=== PATIENT | female | born 1995 | race Caucasian/White ===

== ENCOUNTER 2024-08-31 20:53 | Inpatient (IN) | payer BC ==
[2024-08-31 21:40] LABS: Bilirubin Neg (Negative); Blood, Urine 250 (Negative); Glucose, Urine (Dipstick) Normal (Negative); Ketone, Urine Negative (Negative); Leukocyte 100 (Negative); Nitrite Negative (Negative); Protein, Urine (Dipstick) 30 mg/dl (Neg-Trace); Specific Gravity, Urine 1.015 (1.005-1.030); Urobilinogen Normal mg/dL (Less than 2)
[2024-08-31 21:40] LABS: #Basophils 0.04 10x3/uL (0.0-0.2); #Monocytes 0.88 10x3/uL (0.0-1.1); #Neutrophils 11.22 10x3/uL (1.5-8.4); %Basophils 0.3 % (0.0-2.0); %Eosinophils 1.4 % (0.0-6.0); %Lymphocytes 13.1 % (18.0-47.0); %Monocytes 6.1 % (0.0-10.0); %Neutrophils 77.7 % (40.0-75.0); Hematocrit 30.8 % (34.9-44.5); Hemoglobin 10.2 g/dL (12.0-15.5); Mean Corpuscular HGB CONC 33.1 g/dL (32.0-36.0); Mean Corpuscular Hemoglobin 27.8 pg (27.0-33.0); Mean Corpuscular Volume 83.9 fL (81.6-98.3); Mean Platelet Volume 10.2 fL (7.4-10.4); Platelet Count 198 10x3/uL (150-450); RBC Distribution Width 12.9 % (11.5-14.5); Red Blood Cell (RBC) Count 3.67 10x6/uL (3.90-5.03); White Blood Cell (WBC) Count 14.43 10x3/uL (3.5-10.5)
[2024-08-31 21:43] LABS: Clarity Hazy (Clear)
[2024-08-31] MEDS ORDERED: hydrALAZINE 20 MG/ML VIAL ONE (21:47)
[2024-08-31 21:55] LABS: Anion Gap 15 mmol/L (10-20); BUN (Urea Nitrogen) 8 mg/dL (7.0-18.7); Calc. Creatinine Clearance 0 mL/min (70-130); Calcium 9.8 mg/dL (7.8-10.44); Carbon Dioxide 22 mmol/L (22-29); Chloride 108 mmol/L (98-107); Estimated GFR 122; Glucose 74 mg/dL (70-105); Potassium 3.7 mmol/L (3.5-5.1); Sodium 141 mmol/L (136-145)
[2024-08-31 21:56] LABS: Bacteria/HPF 1+ HPF (None Seen); CAUTI Indications for Culture Dysuria,urgency,freq; RBC/HPF Greater than 50 HPF (0-3)
[2024-08-31 21:57] LABS: Transitional Epithelial 0-3 HPF (None Seen)
[2024-08-31 21:59] LABS: Urine Culture Reflex Yes Yes
[2024-08-31] MEDS ORDERED: Magnesium 2 GM/50 ML BAG (IN WATER) ONE (22:45)
[2024-08-31] MEDS ORDERED: Lorazepam 2 MG/ML VIAL ONE (23:42)
[2024-09-01] MEDS ORDERED: hydrALAZINE 20 MG/ML VIAL SLOW IVP PRN ×2 (00:31)
[2024-09-01] MEDS ORDERED: Lanolin Ointment 7 GM TUBE TOP PRN (00:31)
[2024-09-01] MEDS ORDERED: Promethazine HCl 25 MG/ML VIAL IM PRN (00:31)
[2024-09-01] MEDS ORDERED: Ondansetron PF 4 MG/2 ML Vial IVP PRN (00:31)
[2024-09-01] MEDS ORDERED: Milk Of Magnesia 30 ML UDCUP PO PRN (00:31)
[2024-09-01] MEDS ORDERED: Calcium Gluc 4.6 MEQ/10 ML (100 MG/ML) SLOW IVP PRN ×2 (00:31→01:21)
[2024-09-01] MEDS ORDERED: Methylergonovine 0.2 MG/ML VIAL IM PRN (00:31)
[2024-09-01] MEDS ORDERED: Bisacodyl 10 MG SUPP PR PRN (00:31)
[2024-09-01] MEDS ORDERED: Preparation H Ointment 28 GM TUBE PR PRN (00:31)
[2024-09-01] MEDS ORDERED: Misoprostol 200 MCG TAB VAG PRN (00:31)
[2024-09-01] MEDS ORDERED: Benzocaine-Menthol 82.5 ML CAN TOP PRN (00:31)
[2024-09-01] MEDS ORDERED: Labetalol HCl 100 MG/20 ML VIAL SLOW IVP PRN (00:31)
[2024-09-01] MEDS ORDERED: Lorazepam 2 MG/ML VIAL SLOW IVP PRN ×2 (00:31→01:21)
[2024-09-01] MEDS ORDERED: Oxytocin 30 units/NS 500 ML 500 ML IV SCH (00:45)
[2024-09-01] MEDS: Lactated Ringer's 1,000 ML IV SCH (01:20)
[2024-09-01] MEDS: Magnesium Sulfate 20 gm/500 ml 20 GM/500 ML BAG IVPB SCH ×2 (01:25→10:58)
[2024-09-01] MEDS: Labetalol HCl 100 MG TAB PO SCH ×2 (01:57→09:14)
[2024-09-01] MEDS: Magnesium Sulfate 20 gm/500 ml 20 GM/500 ML BAG ONE (01:59)
[2024-09-01] MEDS: Ibuprofen 800 MG TAB PO SCH ×2 (02:25→11:05)
[2024-09-01 02:27] VITALS: BMI 30.2
[2024-09-01 02:33] LABS: Creatinine, Urine 49.71 mg/dL (16.00-327.00)
[2024-09-01 03:15] LABS: ALT (SGPT) 13 U/L (Less than 34); AST (SGOT) 21 U/L (11-34); Alkaline Phosphatase 134 U/L (40-110); Bilirubin, Direct 0.1 mg/dL (0.1-0.3); Bilirubin, Total 0.3 mg/dL (0.3-1.2); Protein, Total 6.6 g/dL (6.0-8.3)
[2024-09-01] MEDS: Ferrous Sulfate 325 MG TAB PO SCH (09:15)
[2024-09-01] MEDS: Docusate 100 MG CAP PO SCH (09:15)
[2024-09-02] MEDS: Sertraline 100 MG TAB PO SCH (06:02)
[2024-09-02] MEDS: Prenatal Vitamin 1 TAB PO SCH (07:24)
[2024-09-02] MEDS: busPIRone HCl 5 MG TAB PO PRN (21:26)
[2024-09-02] MEDS: hydrALAZINE 20 MG/ML VIAL SLOW IVP PRN (21:27)
[2024-09-02] MEDS: Labetalol HCl 100 MG TAB PO SCH (22:12)
[2024-09-03] MEDS: Ibuprofen 800 MG TAB PO SCH (06:31)
[2024-09-03] MEDS: Labetalol HCl 100 MG TAB PO SCH (08:01)
[2024-09-04] MEDS: Labetalol HCl 100 MG/20 ML VIAL SLOW IVP PRN (08:09)
[2024-09-04] MEDS: Labetalol HCl 200 MG TAB PO SCH (09:10)
[2024-09-04] MEDS ORDERED: Labetalol HCl 100 MG/20 ML VIAL SLOW IVP PRN ×2 (16:24)
[2024-09-04] MEDS ORDERED: hydrALAZINE 20 MG/ML VIAL SLOW IVP PRN (16:24)
[2024-09-04] MEDS: Furosemide 20 MG (2 mL) VIAL SLOW IVP SCH (16:42)
[2024-09-04] MEDS: NIFEdipine XL 30 MG ER.TAB PO SCH (16:43)
[2024-09-04] MEDS: hydrALAZINE 20 MG/ML VIAL SLOW IVP PRN (16:43)
[2024-09-04 16:56] LABS: #Basophils 0.04 10x3/uL (0.0-0.2); #Eosinophils 0.25 10x3/uL (0.0-0.5); #Monocytes 0.95 10x3/uL (0.0-1.1); #Neutrophils 10.71 10x3/uL (1.5-8.4); %Basophils 0.3 % (0.0-2.0); %Eosinophils 1.8 % (0.0-6.0); %Lymphocytes 11.8 % (18.0-47.0); %Monocytes 6.8 % (0.0-10.0); %Neutrophils 77.1 % (40.0-75.0); Hematocrit 33.5 % (34.9-44.5); Hemoglobin 10.9 g/dL (12.0-15.5); Mean Corpuscular HGB CONC 32.5 g/dL (32.0-36.0); Mean Corpuscular Hemoglobin 27.8 pg (27.0-33.0); Mean Corpuscular Volume 85.5 fL (81.6-98.3); Mean Platelet Volume 9.9 fL (7.4-10.4); Platelet Count 255 10x3/uL (150-450); RBC Distribution Width 12.7 % (11.5-14.5); Red Blood Cell (RBC) Count 3.92 10x6/uL (3.90-5.03)
[2024-09-04 17:18] LABS: ALT (SGPT) 18 U/L (Less than 34); AST (SGOT) 23 U/L (11-34); Albumin 3.4 g/dL (3.1-4.5); Alkaline Phosphatase 137 U/L (40-110); Anion Gap 16 mmol/L (10-20); BUN (Urea Nitrogen) 10 mg/dL (7.0-18.7); Bilirubin, Total 0.4 mg/dL (0.3-1.2); Calc. Creatinine Clearance 148 mL/min (70-130); Calcium 9.5 mg/dL (7.8-10.44); Carbon Dioxide 19 mmol/L (22-29); Chloride 111 mmol/L (98-107); Estimated GFR 122; Globulin 3.6 g/dL (2.4-3.5); Glucose 78 mg/dL (70-105); Potassium 4.2 mmol/L (3.5-5.1); Sodium 142 mmol/L (136-145)
[2024-09-04] MEDS: busPIRone HCl 5 MG TAB PO PRN (21:49)
[2024-09-05] MEDS: NIFEdipine XL 30 MG ER.TAB PO SCH ×2 (05:10→16:57)
[2024-09-05] MEDS ORDERED: NIFEdipine XL 30 MG ER.TAB PO SCH (09:00)
[2024-09-05] MEDS: busPIRone HCl 5 MG TAB PO PRN (15:09)
[2024-09-06] MEDS: Ibuprofen 200 MG TAB PO PRN (05:05)
[2024-09-06] MEDS: Labetalol HCl 200 MG TAB PO SCH (09:12)
[2024-09-06 11:14] VITALS: TEMP 98.3
[2024-09-06 15:55] VITALS: BP 120/78
== END 2024-09-06 17:15 | disposition home or self-care (01) | DRG 776 ==
LOC: CSHERS 20:53 → CSHLD 09-01 00:55 → CSHPP 09-02 03:15
PROVIDERS: ADMIT Obstetrics & Gynecology; ATTEND Obstetrics & Gynecology
DX: O14.15 Severe pre-eclampsia, complicating the puerperium (principal); O90.81 Anemia of the puerperium; O99.345 Other mental disorders complicating the puerperium; F41.9 Anxiety disorder, unspecified; O99.335 Smoking (tobacco) complicating the puerperium; F17.210 Nicotine dependence, cigarettes, uncomplicated; O99.315 Alcohol use complicating the puerperium; F10.90 Alcohol use, unspecified, uncomplicated
CPT/HCPCS: 36415; 80048; 80053; 80076; 81001; 82570; 84156; 85025; 87086; 96365; 96375; 99285; J0360; J1940; J2060; J3475; J7120